=== PATIENT | male | born 1970 | race Caucasian/White ===

== ENCOUNTER 2020-02-01 08:02 | Day surgery (SDC) | payer BC ==
[2020-02-01] VITALS (8 sets, daily range): BP systolic 91–139; BP diastolic 51–88
[~2020-02-01] VITALS: Ht 180.3 cm; Wt 82.6 kg
--- NOTE | 2020-02-01 08:23 | Anethesia Preoperative Eval ---
Anesthesia Pre-op PMH/ROS General Date of Evaluation: February 01, 2020 Time of Evaluation: 08:21 Anesthesiologist: jake ASA Score: ASA 2 Mallampati Score Class I : Soft palate, uvula, fauces, pillars visible Class II: Soft palate, uvula, fauces visible Class III: Soft palate, base of uvula visible Class IV: Only hard plate visible Mallampati Classification: Class II Surgeon: merlin Diagnosis: gerd, colon screening Surgical Procedure: egd/colonoscopy Anesthesia History: none Social History: smoking - nonsmoker Family History: no anesthesia problems Allergies: Coded Allergies: No Known Allergies (Unverified , 02/01/20) Medications: see eMAR Patient NPO?: Yes Past Medical History Cardiovascular: Reports: other - hypercholesterolemia Musculoskeletal/Integumentary: Reports: other - gout Anesthesia Pre-op Phys. Exam Physician Exam Last Vital Signs Date Time Temp Pulse Resp B/P (MAP) Pulse Ox O2 Delivery O2 Flow Rate FiO2 02/01/20 08:24 Room Air 02/01/20 08:18 97.9 59 18 126/88 98 Constitutional: NAD Neurologic: CN 2-12 intact Cardiovascular: RRR Respiratory: CTA Gastrointestinal: S/NT/ND Airway Exam Mallampati Score: Class II MO: limited Neck: flexible TMD: 2fb ROM: limited Teeth: intact Anesthesia Pre-op A/P Risk Assessment & Plan Assessment: asa2 Plan: mac Status Change Before Surgery: No Pre-Antibiotics Drug: Geneva Howard MD February 01, 2020 08:23
[2020-02-01] MEDS ORDERED: LR 1000ml ONE (08:30)
[2020-02-01] MEDS ORDERED: Lidocaine 1% MPF 10mg/ml 5ml ONE (08:30)
--- NOTE | 2020-02-01 08:38 | Pre-Procedure Note/Attestation ---
Pre-Procedure Note/Attestation Complete Prior to Procedure Planned Procedure: not applicable Procedure Narrative: esophagogastroduodenoscopy and colonoscopy Indications for Procedure Pre-Operative Diagnosis: screening colon, GERD Attestation I attest that I discussed the nature of the procedure; its benefits; risks and complications; and alternatives (and the risks and benefits of such alternatives ), prior to the procedure, with the patient (or the patient's legal housing management representative). I attest that, if there was a reasonable possibility of needing a blood transfusion, the patient (or the patient's legal housing management representative) was given the [facility] standardized written summary, pursuant to the [place] Blood Safety Act ([place] Health and Safety Code # 1645, as amended). I attest that I re-evaluated the patient just prior to the surgery and that there has been no change in the patient's H&P, except as documented below: Cuba Kiran MD February 01, 2020 08:38
--- NOTE | 2020-02-01 08:39 | Short Stay Surgery H&P ---
History of Present Illness History of Present Illness Chief Complaint screening colon, GERD HPI Sandip Martinez is a 49 year old male who was admitted on for Gerd,Colon Screening Patient History PAST MEDICAL HISTORY: (1) Gout Review of Systems Cardiovascular: Reports: no symptoms Respiratory: Reports: no symptoms Skeletal: Reports: no symptoms Gastrointestinal: Reports: gastro esophageal reflux disease Genitourinary: Reports: no symptoms Neurologic: Reports: no symptoms Endocrine: Reports: no symptoms Hematologic: Reports: no symptoms Physical Exam Vital Signs Last Vital Signs Date Time Temp Pulse Resp B/P (MAP) Pulse Ox O2 Delivery O2 Flow Rate FiO2 02/01/20 08:24 Room Air 02/01/20 08:18 97.9 59 18 126/88 98 Skin: normal HENT: normal Heart: normal Lungs: normal Abdomen: normal Extremities: normal Plan Plan of Care esophagogastroduodenoscopy and colonoscopy Attestation Are the patient's medical conditions optimized for surgery? Attestation Response: yes Cuba Kiran MD February 01, 2020 08:39
[2020-02-01] MEDS ORDERED: LR 1000ml 1,000 ML IVLG SCH (09:01)
[2020-02-01] MEDS ORDERED: fentaNYL 100 mcg/2 mL IV PRN (09:15)
[2020-02-01] MEDS ORDERED: DiphenhydrAMINE 50mg/ml Inj IVP PRN (09:15)
[2020-02-01] MEDS ORDERED: Midazolam 2mg/2ml Inj IVP PRN (09:15)
[2020-02-01] MEDS ORDERED: Atropine Inj 1mg/10ml Syr IV PRN (09:15)
--- NOTE | 2020-02-01 09:46 | Endoscopy Procedure Note ---
Endoscopy Procedure Note General Indication for Procedure: screening colon, GERD Procedures Performed: EGD, colonoscopy Operative Findings/Diagnosis: 3 polyps, gastritis Specimen: yes Pt Tolerated Procedure Well: Yes Estimated Blood Loss: none Anesthesia Anesthesiologist: danielle Anesthesia: MAC Inserted Devices Implant(s) used?: No Quality Quality of Bowel Preparation: Good Did scope reach the cecum?: Yes Was there any complications?: No GI Core Measures 50 yrs or older w/o bx or poly: No 10yrs. F/U recommended: Yes If not recommended, why?: Above average risk 18 years or older w/prev. colo: No Cuba Kiran MD February 01, 2020 09:46
--- NOTE | 2020-02-01 11:57 | Immediate Post-Op Evaluation ---
Immediate Post-Op Evalulation Immediate Post-Op Evalulation Procedure: egd/colonoscopy w/bx Date of Evaluation: February 01, 2020 Time of Evaluation: 09:36 IV Fluids: 650ml lr Blood Products: none Estimated Blood Loss: negligible Blood Pressure Systolic: 92 Blood Pressure Diastolic: 56 Pulse Rate: 67 Respiratory Rate: 18 O2 Sat by Pulse Oximetry: 100 Temperature (Fahrenheit): 97.1 Pain Score (1-10): 0 Nausea: No Vomiting: No Complications none Patient Status: awake, reacts, patent Hydration Status: adequate Drug: Geneva Howard MD February 01, 2020 11:57
--- NOTE | 2020-02-01 11:58 | 48 Hour Post Anesthesia Eval ---
Post Anesthesia Evaluation Procedure: egd/colonoscopy w/bx Date of Evaluation: February 01, 2020 Time of Evaluation: 09:38 Blood Pressure Systolic: 92 0: 60 Pulse Rate: 61 Respiratory Rate: 18 Temperature (Fahrenheit): 97.4 O2 Sat by Pulse Oximetry: 100 Airway: patent Nausea: No Vomiting: No Pain Intensity: 0 Hydration Status: adequate Cardiopulmonary Status: stable Mental Status/LOC: patient returned to baseline Post-Anesthesia Complications: none Follow-up care needed: N/A Geneva Moon MD February 01, 2020 11:58
--- NOTE | 2020-02-01 17:15 | Procedure Note ---
DATE OF PROCEDURE: 02/01/2020 SURGEON: Cuba Kiran MD. PROCEDURE: Upper endoscopy with biopsy, colonoscopy with snare polypectomy and biopsy. ANESTHESIA: Per Dr. Denton. INSTRUMENT: Olympus adult flexible upper endoscope and colonoscope. INDICATIONS: Screening colonoscopy evaluation, chronic GERD. REASON FOR PROCEDURE: The procedure, risks, benefits, and possible consequences, including hemorrhage, aspiration, perforation and infection, and alternative treatments, were explained to the patient/legal guardian by Dr. Cuba Kiran and the patient/legal guardian understood and accepted these risks. DESCRIPTION OF PROCEDURE: After informed consent was obtained and patient was adequately sedated, Olympus upper endoscope was advanced from mouth into the second portion of the duodenum and retroflexion performed in the stomach. Patient had evidence of diffuse gastritis. Random biopsies from antrum and body was obtained to rule out H. pylori infection. GE junction was found about 30 cm from the incisors. No evidence of any esophagitis. At this time, the upper endoscope was retrieved. Patient was turned over for colonoscopy. First, rectal exam was performed, which was positive for small internal hemorrhoids. Then, the scope was advanced from the rectum into the cecum then subsequently to terminal ileum. Quality of prep was very good. Patient had one sessile polyp in the ascending colon measured roughly about 6 mm, removed with a hot snare polypectomy technique. Patient had another polyp almost 6 mm in the transverse colon, removed with hot snare polypectomy technique. Patient had one small polyp in the rectum, which was removed with a cold biopsy forceps technique. The rest of the examination grossly looked within normal limits. No obvious diverticulosis, mass, or any new pathology was seen. Retroflexion of rectum showed evidence of small internal hemorrhoids. SUMMARY OF FINDINGS: 1. Diffuse mild gastritis, status post biopsy. 2. Two small inlet patches seen in the upper esophagus. 3. Three colonic polyps removed, see above for details. 4. Internal hemorrhoids. RECOMMENDATIONS: 1. Follow up biopsy results and treat accordingly. 2. We will recommend repeat colonoscopy in 2 years given 3 polyps. Cuba Kiran M.D. DR: PIPO JOB#: [id number] CC:
== END 2020-02-01 10:25 | disposition home or self-care (01) ==
LOC: GAS 08:02
DX: Z12.11 Encounter for screening for malignant neoplasm of colon (principal); K21.9 Gastro-esophageal reflux disease without esophagitis; K29.70 Gastritis, unspecified, without bleeding; K63.5 Polyp of colon; K64.8 Other hemorrhoids; E78.00 Pure hypercholesterolemia, unspecified
CPT/HCPCS: 94003; 94150